=== PATIENT | male | born 1980 | race Caucasian/White ===

== ENCOUNTER → 2020-03-28 13:40 | Outpatient (BNVA) | payer OTHER, SELFPAY | PROVIDERS: Family Provider Urology; PCP Nurse Practitioner; Visit Provider Licensed Practical Nurse | DX: R42 Dizziness and giddiness (principal); R20.0 Anesthesia of skin; R20.2 Paresthesia of skin | CPT/HCPCS: 99213 ==

== ENCOUNTER 2020-04-10 12:36 | Outpatient (CLI) | payer OTHER, SELFPAY ==
--- NOTE | 2020-04-10 13:00 | MR_ITS ---
WS: [id number] MRI HEAD WITH CONTRAST TECHNIQUE: Sagittal T1, T2 axial, T2 axial FLAIR, axial susceptibility weighted imaging, axial diffus ion weighted images, and coronal T2 images were obtained. Pre and post-T1 axial and post T1 coronal i mages. ADC and FSPGR images. CLINICAL INFORMATION: Dizziness, numbness, tingling COMPARISON: None. FINDINGS: No evidence of restricted diffusion to suggest acute ischemia. Ventricular system and basal cisterns are patent. No suspicious intracranial signal abnormalities. Normal frazier-white differentiation. Joi l posterior fossa. Normal vascular flow voids at the skull base. No extra-axial fluid collections. No evidence of mass or mass effect. Paranasal sinuses and mastoid air cells are well aerated. Temporal lobes and hippocampal formations are normal in appearance. No signal abnormalities in the me sial temporal lobes. Normal optic chiasm and pituitary infundibulum. No hemosiderin on the susceptibi lity weighted images. No abnormal intraparenchymal enhancement. Normal cavernous sinuses and Meckel's cave. Normal visualized dural venous sinuses. MR/MR head wo/w con [id number] IMPRESSION: 1. No evidence of restricted diffusion to suggest acute ischemia. 2. No suspicious intracranial signal abnormalities. Normal frazier-white differen tiation. 3. No abnormal gadolinium enhancement. 4. Paranasal sinuses and mastoid air cells well aerated. 5. No hemosiderin on the susceptibility weighted images.
== END 2020-04-10 12:37 | disposition home or self-care (01) ==
LOC: RADWPI 12:41
PROVIDERS: PCP Nurse Practitioner; Visit Provider Licensed Practical Nurse
DX: R42 Dizziness and giddiness (principal); R20.0 Anesthesia of skin; R20.2 Paresthesia of skin
CPT/HCPCS: 70553; 95909; A9579

== ENCOUNTER → 2020-04-16 14:01 | Outpatient (BNVA) | payer OTHER, SELFPAY | PROVIDERS: PCP Nurse Practitioner; Visit Provider Licensed Practical Nurse | DX: R42 Dizziness and giddiness (principal); R20.0 Anesthesia of skin; R20.2 Paresthesia of skin | CPT/HCPCS: 99213 ==